=== PATIENT | male | born 1980 | race Two or more races ===

== ENCOUNTER 2022-11-07 16:11 | Emergency (ER) | payer OTHER ==
[~2022-11-07] VITALS: Ht 152.4 cm; Wt 61.3 kg
[2022-11-07 22:13] VITALS: BP 142/82
== END 2022-11-07 22:15 | disposition short-term general hospital (02) ==
LOC: ER 16:11 → EEVIPCON 16:11 → ER 22:15
DX: S62.623B Displaced fracture of middle phalanx of left middle finger, initial encounter for open fracture (principal); W18.39XA Other fall on same level, initial encounter; Y93.67 Activity, basketball; Y92.89 Other specified places as the place of occurrence of the external cause; Y99.8 Other external cause status
CPT/HCPCS: 73130